=== PATIENT | male | born 1965 | race Caucasian/White ===

== ENCOUNTER → 2019-02-14 | Outpatient (CLI) | payer MEDICAID | END | disposition home or self-care (01) | LOC: CFH 11:50 | PROVIDERS: ATTEND Nurse Practitioner | DX: M25.512 Pain in left shoulder (principal) ==

== ENCOUNTER 2019-05-16 12:39 | Emergency (ER) | payer MEDICAID ==
[~2019-05-16] VITALS: Ht 180.3 cm; Wt 70.0 kg
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
[2019-05-16] MEDS ORDERED: NEOSPORIN OINT. PKT 1 PACKET ONE (12:59)
[2019-05-16] MEDS ORDERED: DIPH,PERTUSS(ACELL),TET VAC/PF 0.5 ML IM-VACC ONE ×2 (13:00)
--- NOTE | 2019-05-16 13:30 | NUR ---
pt in ct now.
--- NOTE | 2019-05-16 14:06 | NUR ---
PT REQUESTIONG PAIN MED. EDMD NOTIFIED.
[2019-05-16] MEDS ORDERED: OXYcodone/APAP 5/325MG TABLET ONE (14:45)
--- NOTE | 2019-05-16 15:29 | NUR ---
PT SLEEPING IN GURNEY. RESPS EVEN AND UNLABORED.
[2019-05-16 15:56] VITALS: BP 102/68
--- NOTE | 2019-05-16 15:56 | NUR ---
PT MEDICATED PER EDMD ORDER. PT TOLERATED WELL. EMAR IS NOT WORKING AT THIS TIME.
[2019-05-16] MEDS ORDERED: OXYcodone/APAP 5/325MG TABLET PO ONE ×2 (17:00)
--- NOTE | 2019-05-16 17:06 | NUR ---
PT SLEEPING IN [facility]. RESPS EVEN AND UNLABORED. BP/SPO2 MONITORS IN PLACE. CALL LIGHT WITHIN REACH.
--- NOTE | 2019-05-16 17:23 | NUR ---
Patient given discharge instructions and they have confirmed that they understand the instructions. Patient ambulatory with steady gait.
== END 2019-05-16 17:24 | disposition home or self-care (01) ==
LOC: ED 17:18
DX: S02.2XXA Fracture of nasal bones, initial encounter for closed fracture (principal); S09.90XA Unspecified injury of head, initial encounter; F10.229 Alcohol dependence with intoxication, unspecified; Y04.8XXA Assault by other bodily force, initial encounter; Y93.89 Activity, other specified; Y92.410 Unspecified street and highway as the place of occurrence of the external cause; Y99.8 Other external cause status
CPT/HCPCS: 70450; 70486; 72125; 90471; 90715